=== PATIENT | male | born 1995 ===

== ENCOUNTER 2023-05-07 12:12 | Observation (INO) | payer OTHER ==
[2023-05-07] MEDS ORDERED: ONDANSETRON 4 MG/2 ML VIAL IVPUSH ONE (13:00)
[2023-05-07] MEDS ORDERED: LACTATED RINGERS SOLUTION 1000 ML INFUS.BAG IV ONE (13:00)
[2023-05-07] MEDS ORDERED: FAMOTIDINE 20 MG/50 ML IVPB 20 MG/50 ML MG IVPB ONE (13:00)
[2023-05-07] MEDS ORDERED: ONDANSETRON 4 MG/2 ML VIAL ONE (13:15)
[2023-05-07] MEDS ORDERED: FAMOTIDINE 10 MG/ML VIAL IVPB ONE (13:16)
[2023-05-07 13:21] LABS: BASO % 0.2 % (0-2.0); EOS % 0.3 % (0-4.5); HEMATOCRIT 46.1 % (35.4-49); LYMPH % 12.2 % (8-40); MCHC 34.7 g/dl (32.0-35.9); MEAN CELL VOLUME 83.5 fl (80-96); MEAN PLT VOLUME 7.9 fl (7.5-11.1); MONO % 7.7 % (3.8-10.2); NEUT % 79.6 % (42.8-82.8); PLATELET COUNT 266 10^3/uL (134-434); RBC 5.52 M/mm3 (4.00-5.60); RDW 12.9 % (11.9-15.9); WHITE BLOOD COUNT 11.7 K/mm3 (4.0-10.0)
[2023-05-07 13:29] LABS: VENOUS BASE EXCESS -1.9 mmol/L (-2-2); VENOUS O2 SATURATION 35.8 % (70-80); VENOUS PCO2 49.5 mmHg (38-52); VENOUS PH 7.319 (7.310-7.410)
[2023-05-07 13:34] LABS: INR 1.15 (0.83-1.09); PROTHROMBIN TIME (PATIENT) 13.3 SEC (9.7-13.0)
[2023-05-07 13:36] LABS: ACTIVATED PTT 26.7 SECONDS (25.2-36.5)
[2023-05-07 13:57] LABS: POTASSIUM 4.4 mmol/L (3.5-5.1)
[2023-05-07 14:00] LABS: BLOOD UREA NITROGEN 13.8 mg/dL (7-18); CALCIUM 9.4 mg/dL (8.5-10.1)
[2023-05-07 14:01] LABS: ALBUMIN 4.2 g/dl (3.4-5.0); MAGNESIUM 2.2 mg/dL (1.8-2.4)
[2023-05-07 14:03] LABS: CREATININE 1.3 mg/dL (0.55-1.3)
[2023-05-07 14:04] LABS: BILIRUBIN,TOTAL 0.4 mg/dL (0.2-1)
[2023-05-07 14:44] LABS: PH,URINE 5.5 (5.0-8.0); URINE APPEARANCE CLEAR; URINE BILIRUBIN NEGATIVE (NEGATIVE); URINE COLOR YELLOW; URINE GLUCOSE (UA) NEGATIVE (NEGATIVE); URINE KETONE NEGATIVE (NEGATIVE); URINE LEUK ESTERASE NEGATIVE (NEGATIVE); URINE NITRITE NEGATIVE (NEGATIVE); URINE PROTEIN NEGATIVE (NEGATIVE); URINE UROBILINOGEN 0.2 mg/dL (0.2-1.0)
[2023-05-07] MEDS ORDERED: ACETAMINOPHEN 1000 MG/100 ML BAG IVPB ONE (15:16)
[2023-05-07] MEDS ORDERED: ACETAMINOPHEN INJECTION 100 ML IVPB ONE (15:24)
[2023-05-07] MEDS: LACTATED RINGERS SOLUTION 1,000 ML IV SCH (15:57)
[2023-05-07] MEDS ORDERED: IBUPROFEN 800 MG/8 ML IJ IVPB PRN (16:25)
[2023-05-07] MEDS ORDERED: ONDANSETRON 4 MG/2 ML VIAL IVPUSH PRN (20:00)
[2023-05-07] MEDS ORDERED: ACETAMINOPHEN 1000 MG/100 ML BAG IVPB PRN (21:00)
[2023-05-08] MEDS: LACTATED RINGERS SOLUTION 1,000 ML IV SCH ×2 (02:57→16:44)
[2023-05-08 03:34] VITALS: BMI 24.4
[2023-05-08 08:51] LABS: HEMATOCRIT 45.1 % (35.4-49); HEMOGLOBIN 15.2 GM/dL (11.7-16.9); MCH 28.4 pg (25.7-33.7); MCHC 33.7 g/dl (32.0-35.9); MEAN CELL VOLUME 84.2 fl (80-96); MEAN PLT VOLUME 7.9 fl (7.5-11.1); PLATELET COUNT 288 10^3/uL (134-434); RBC 5.36 M/mm3 (4.00-5.60); RDW 12.7 % (11.9-15.9); WHITE BLOOD COUNT 9.2 K/mm3 (4.0-10.0)
[2023-05-08 09:00] LABS: POTASSIUM 4.1 mmol/L (3.5-5.1)
[2023-05-08] MEDS ORDERED: BISACODYL 10 MG SUPP.RECT PR ONE (09:15)
[2023-05-08 09:19] LABS: BLOOD UREA NITROGEN 11.8 mg/dL (7-18); CALCIUM 9.7 mg/dL (8.5-10.1)
[2023-05-08 09:23] LABS: CREATININE 1.4 mg/dL (0.55-1.3); PHOSPHOROUS 4.3 mg/dL (2.5-4.9)
[2023-05-08] MEDS: POLYETHYLENE GLYCOL (HEALTHYLAX) 3350 17 GM PACKET PO SCH ×2 (09:33→23:03)
[2023-05-08] MEDS ORDERED: amLODIPine BESYLATE 5 MG TABLET (FP) PO SCH (10:00)
[2023-05-08] MEDS: amLODIPine BESYLATE 5 MG TABLET (FP) PO SCH (16:43)
[2023-05-09 09:25] LABS: HEMATOCRIT 39.7 % (35.4-49); HEMOGLOBIN 14.2 GM/dL (11.7-16.9); MCH 29.2 pg (25.7-33.7); MCHC 35.7 g/dl (32.0-35.9); MEAN CELL VOLUME 81.7 fl (80-96); MEAN PLT VOLUME 7.9 fl (7.5-11.1); PLATELET COUNT 225 10^3/uL (134-434); RBC 4.86 M/mm3 (4.00-5.60); RDW 12.7 % (11.9-15.9); WHITE BLOOD COUNT 6.5 K/mm3 (4.0-10.0)
[2023-05-09 09:51] LABS: POTASSIUM 3.9 mmol/L (3.5-5.1)
[2023-05-09 10:12] LABS: BLOOD UREA NITROGEN 14.9 mg/dL (7-18)
[2023-05-09 10:14] LABS: ALBUMIN 3.8 g/dl (3.4-5.0); BILIRUBIN,TOTAL 0.9 mg/dL (0.2-1); MAGNESIUM 2.2 mg/dL (1.8-2.4)
[2023-05-09 10:15] LABS: PHOSPHOROUS 3.9 mg/dL (2.5-4.9)
[2023-05-09 10:16] LABS: CREATININE 1.1 mg/dL (0.55-1.3)
[2023-05-09 10:20] LABS: TOT PROT 6.8 g/dl (6.4-8.2)
[2023-05-09] MEDS: POLYETHYLENE GLYCOL (HEALTHYLAX) 3350 17 GM PACKET PO SCH (10:32)
[2023-05-09] MEDS: amLODIPine BESYLATE 5 MG TABLET (FP) PO SCH (10:32)
[2023-05-09 15:39] VITALS: BP 140/75; PULSE 69; RESP 20; TEMP 97.9
== END 2023-05-09 16:00 | disposition home or self-care (01) ==
LOC: JER 12:12 → JERBED 15:27 → J7W 05-08 02:07
PROVIDERS: ADMIT Internal Medicine; ATTEND Internal Medicine
PROC: 3E033NZ Introduction of Analgesics, Hypnotics, Sedatives into Peripheral Vein, Percutaneous Approach (ICD-10-PCS; principal; 2023-05-07)
PROC: 3E0337Z Introduction of Electrolytic and Water Balance Substance into Peripheral Vein, Percutaneous Approach (ICD-10-PCS; 2023-05-07)
PROC: 3E033GC Introduction of Other Therapeutic Substance into Peripheral Vein, Percutaneous Approach (ICD-10-PCS; 2023-05-07)
DX: K91.89 Other postprocedural complications and disorders of digestive system (principal); K56.7 Ileus, unspecified; I10 Essential (primary) hypertension; K59.00 Constipation, unspecified; X58.XXXA Exposure to other specified factors, initial encounter; Y93.89 Activity, other specified; Y92.89 Other specified places as the place of occurrence of the external cause
CPT/HCPCS: 36415; 71045-TC-FY; 74019-TC-FY; 74021-TC-FY; 74177-TC; 80048; 80053; 81003; 82803; 83605; 83690; 83735; 84100; 85025; 85027; 85610; 85730; 86850; 86900; 86901; 87086; 93005; 93010; 96365; 96375; 96376; 99285-25; G0378; Q9967